=== PATIENT | female | born 1985 | race Caucasian/White ===

== ENCOUNTER 2018-12-03 16:44 | Inpatient (IN) | payer OTHER ==
[~2018-12-03] VITALS: Ht 160 cm; Wt 183.0 kg
[~2018-12-03 16:44] MED LIST: PRENATAL TABLE1 EAC1 PO; SYNTHROID75 MCG PO
[2018-12-03] MEDS ORDERED: PROCARDIA PO (18:03)
[2018-12-06] MEDS ORDERED: NIFEDIPINE20 MG PO (11:57)
[2018-12-09] MEDS ORDERED: HYDROXYZINE PAM50 MG PO (07:26)
[2018-12-09] MEDS ORDERED: NIFEDIPINE20 MG PO (07:26)
== END 2018-12-09 10:41 | disposition home or self-care (01) | DRG 833 ==
LOC: OB/GYN 16:44 → LDR 16:44 → OB/GYN 12-04 11:59
PROVIDERS: ADMIT Obstetrics & Gynecology
PROC: BY4FZZZ Ultrasonography of Third Trimester, Single Fetus (ICD-10-PCS; principal; 2018-12-03)
PROC: 4A1HXCZ Monitoring of Products of Conception, Cardiac Rate, External Approach (ICD-10-PCS; 2018-12-03)
DX: O47.03 False labor before 37 completed weeks of gestation, third trimester (principal); Z34.83 Encounter for supervision of other normal pregnancy, third trimester

== ENCOUNTER 2019-01-07 13:14 | Inpatient (IN) | payer OTHER ==
[~2019-01-07] VITALS: Ht 160 cm; Wt 189.0 kg
[~2019-01-07 13:14] MED LIST changes: +HYDROXYZINE PAM50 MG PO; +NIFEDIPINE20 MG PO; +PROCARDIA PO
[2019-01-07] MEDS ORDERED: NIFEDIPINE20 MG PO (13:49)
[2019-01-07] MEDS ORDERED: VISTARIL25 MG PO (13:50)
[2019-01-09] MEDS ORDERED: IBUPROFEN400 MG PO (10:29)
[2019-01-09] MEDS ORDERED: DOCUSATE SODIU100 MG PO (10:29)
[2019-01-09] MEDS ORDERED: Dermoplast SPRAY TOP (10:29)
[2019-01-09] MEDS ORDERED: PREPLUS CA-FE1 EACH PO (10:29)
[2019-01-09] MEDS ORDERED: LEVOTHYROXINE50 MCG PO (10:29)
== END 2019-01-09 12:23 | disposition home or self-care (01) | DRG 807 ==
LOC: LDR 13:14 → SURG-SUITE 17:14
PROVIDERS: ADMIT Obstetrics & Gynecology
PROC: 10E0XZZ Delivery of Products of Conception, External Approach (ICD-10-PCS; principal; 2019-01-07)
PROC: 10907ZC Drainage of Amniotic Fluid, Therapeutic from Products of Conception, Via Natural or Artificial Opening (ICD-10-PCS; 2019-01-07)
PROC: 0W8NXZZ Division of Female Perineum, External Approach (ICD-10-PCS; 2019-01-07)
PROC: 3E033VJ Introduction of Other Hormone into Peripheral Vein, Percutaneous Approach (ICD-10-PCS; 2019-01-07)
PROC: 4A1HXCZ Monitoring of Products of Conception, Cardiac Rate, External Approach (ICD-10-PCS; 2019-01-07)
DX: O80 Encounter for full-term uncomplicated delivery (principal); Z37.0 Single live birth; Z3A.37 37 weeks gestation of pregnancy